=== PATIENT | female | born 1960 | race Caucasian/White ===

== ENCOUNTER → 2023-10-30 10:40 | Outpatient (REF) | payer MEDICARE, OTHER, SELFPAY | LOC: PAVMRI 10:40 | PROVIDERS: ATTENDING PHYSICIAN Psychiatry & Neurology Neurology; FAMILY PHYSICIAN Family Medicine | DX: G35 Multiple sclerosis (principal) | CPT/HCPCS: 70553; 72156; A9575 ==

== ENCOUNTER → 2023-10-31 10:37 | Outpatient (REF) | payer MEDICARE, OTHER, SELFPAY | LOC: PAVMRI 10:37 | PROVIDERS: ATTENDING PHYSICIAN Psychiatry & Neurology Neurology; FAMILY PHYSICIAN Family Medicine | DX: G35 Multiple sclerosis (principal) | CPT/HCPCS: 72157; A9575 ==

== ENCOUNTER 2024-01-04 09:26 | Emergency (ER) | payer MEDICARE, OTHER, SELFPAY ==
[2024-01-04 09:29] VITALS: BP 169/111
[2024-01-04] MEDS: ADACEL 0.5 ML IM (10:39)
--- NOTE | 2024-01-04 10:49 | ED.GENMED ---
History of Present Illness
General
Chief Complaint: Head Injury
Time Seen by Provider: 01/04/24 10:01
History of Present Illness
History of Present Illness:
63-year-old female with history of MS presents to the emergency department for evaluation of a fall with resultant head injury, she has chronic weakness of her left lower extremity and lost her balance try to go up the stairs, denies any loss of
consciousness. There is a laceration to the posterior, blood thinners.
Past History
Past History
ED Past Medical History: Other
Social History
Tobacco: Non-smoker
Personal: Single
Living: with family (lives with brother)
Family History
Family History: CAD
Review of Systems
Review of Systems
Allergies reviewed?: Yes
All Other Systems: ROS reviewed and negative except as documented in HPI and ROS
Phy Exam
Physical Exam
Physical Exam:
GEN: Well appearing, NAD, WDWN
HEENT: Abrasion with a hematoma to the central posterior parietal scalp, small laceration approximately 1 to 2 cm located in the central aspect of the abrasion without active bleeding oral mucosa moist, no scleral icterus
Cardiac: Regular rate
Lung: No respiratory distress, no tachypnea
MSK: No gross deformity or injuries
Skin: Good color, no pallor or jaundice, no rashes
Neuro: AO x3, cranial nerves II through XII grossly intact, moves all extremities freely
Psych: Calm, cooperative
Course
Orders/Labs/Results
Orders:
Orders
01/04/24 10:35
CT Head W/o Iv Contrast Urgent
Comment:
Reason For Exam: head trauma
Tetanus/Diphth/Acelpertussis [Adacel] 0.5 ml IM .ONCE ONE
Vital Signs
Initial and Last Documented VS:
Initial Vital Signs
Temp Pulse Resp BP Pulse Ox
98.1 F 104 18 169/111 100
01/04/24 09:29 01/04/24 09:29 01/04/24 09:29 01/04/24 09:29 01/04/24 09:29
Last Documented Vital Signs
Temp Pulse Resp BP Pulse Ox
98.1 F 104 18 169/111 100
01/04/24 09:29 01/04/24 09:29 01/04/24 09:29 01/04/24 09:29 01/04/24 09:29
Procedures
Laceration Closure
Scalp:
Status of Wound: clean
Size of Wound in cm: 1
Description of Wound Edges: ragged and surrounded by abrasion
Preparation: cleaned with saline
Anesthesia: 1% Lidocaine with epi
Skin Closure Material: skin jhoana
Number of sutures: 5
MDM/Problems Addressed
MDM/Problems Addressed:
CT of the head is unremarkable, 5 jhoana applied for hemostasis, tetanus updated
*Critical Care Note
Total Time (30-74mins, 75-104mins- exclusive of procedures): Not Applicable
ED Attending Note
-
Portions of this chart may have been created with voice recognition software.� Occasional wrong word or��sound alike� substitutions may have occurred due to the inherent limitations of voice recognition software.
Discharge Plan
Departure
Patient Disposition: Home (Routine Discharge)
Date of Disposition: 01/04/24
Time of Disposition: 11:26
Patient with high blood pressure during this ER visit?: No
Discharge Problem:
Laceration of scalp
Instructions: Laceration Repair With Jhoana (DC)
Prescriptions:
No Action
oxybutynin chloride 5 MG tablet
5 mg PO BID
Claritin
1 tab PO PRN PRN (Reason: allergy symptoms)
diltiazem HCl 240 MG capsule,extended release 24 hr
240 mg PO DAILY
Referrals:
Yasemin Molina MD [Family Provider] -
Activity Restrictions/Additional Instructions:
Ice and elevate the head. Staple removal in 5 days
You can shower beginning tomorrow, be careful when washing around the wound
Interventions
Interventions:
*Risk Screen - Suicide Last Done: 01/04/24 09:29
*General Assessment Last Done: 01/04/24 09:29
*Neglect/Abuse Screening Last Done: 01/04/24 09:29
ED- Fall Risk Assessment Last Done: 01/04/24 11:32
*ED COVID-19 Vaccine History Last Done: 01/04/24 11:33
*Nursing Disposition Last Done: 01/04/24 11:35
ED- Neurological Assessment Last Done: 01/04/24 11:32
ED-Skin Assessment Last Done: 01/04/24 11:32
Discharge Date and Time
Discharge Date/Time: 01/04/24 11:35
Print Language: BERMUDIAN
== END 2024-01-04 11:35 | disposition home or self-care (01) ==
LOC: EMR 09:26
PROVIDERS: EMERGENCY PHYSICIAN Emergency Medicine; FAMILY PHYSICIAN Internal Medicine
DX: S01.01XA Laceration without foreign body of scalp, initial encounter (principal); W19.XXXA Unspecified fall, initial encounter; Z23 Encounter for immunization
CPT/HCPCS: 99284; 12001; 90471; 70450; 90715

== ENCOUNTER → 2024-04-30 07:09 | Outpatient (REF) | payer MEDICARE, OTHER, SELFPAY | LOC: MRI 3T 07:09 | PROVIDERS: ATTENDING PHYSICIAN Psychiatry & Neurology Neurology | DX: R26.9 Unspecified abnormalities of gait and mobility (principal); G35 Multiple sclerosis | CPT/HCPCS: 70553; 72148; A9575 ==